=== PATIENT | male | born 1970 | race Hispanic/Latino ===

== ENCOUNTER 2016-08-19 22:24 | Emergency (ER) | payer OTHER ==
[~2016-08-19] VITALS: Ht 170.2 cm; Wt 71.3 kg
[2016-08-20 00:38] VITALS: BP 143/57
== END 2016-08-20 00:38 | disposition home or self-care (01) ==
LOC: EME 22:24
DX: H16.002 Unspecified corneal ulcer, left eye (principal)
CPT/HCPCS: 99281; 99283